=== PATIENT | female | born 1960 | race Caucasian/White ===

== ENCOUNTER 2022-07-28 11:15 | Outpatient (RCR) | payer BC, SELFPAY | END 2022-08-11 16:42 | disposition home or self-care (01) | PROVIDERS: Visit Provider Orthopaedic Surgery | DX: M17.12 Unilateral primary osteoarthritis, left knee (principal); Z51.89 Encounter for other specified aftercare | CPT/HCPCS: 97110; 97161 ==

== ENCOUNTER 2022-10-09 13:00 | Outpatient (RCR) | payer BC, SELFPAY | END 2022-10-27 10:27 | disposition home or self-care (01) | PROVIDERS: Visit Provider Orthopaedic Surgery | DX: Z98.890 Other specified postprocedural states (principal); M25.562 Pain in left knee; M25.662 Stiffness of left knee, not elsewhere classified; Z47.1 Aftercare following joint replacement surgery; Z96.652 Presence of left artificial knee joint; Z51.89 Encounter for other specified aftercare | CPT/HCPCS: 97110; 97112; 97116; 97140; 97162 ==

== ENCOUNTER 2023-05-12 17:00 | Outpatient (RCR) | payer BC, SELFPAY | END 2023-05-13 08:41 | disposition home or self-care (01) | PROVIDERS: PCP Nurse Practitioner Family; Visit Provider Nurse Practitioner Family | DX: M18.0 Bilateral primary osteoarthritis of first carpometacarpal joints (principal); Z51.89 Encounter for other specified aftercare | CPT/HCPCS: 97110; 97140; 97165; X5282 ==